=== PATIENT | male | born 1975 | race African-American/Black ===

== ENCOUNTER 2016-12-29 08:26 | Emergency (ER) | payer OTHER ==
[2016-12-29 08:37] VITALS: BP 145/71
--- NOTE | 2016-12-29 09:27 | ER Document Report ---
ED General - General TRAVEL OUTSIDE OF THE [place] IN LAST 30 DAYS: No - General Chief Complaint: Anxiety Stated Complaint: ANXIETY Time Seen by Provider: 12/29/16 09:06 - HPI Notes: Patient, with a history of panic attacks/anxiety, comes to the ED complaining of a panic attack last night and this morning, and now has a headache around his temples bilaterally. No recent head injuries. The headache is described as mild and does not radiate. He is still eating/drinking, urinating, and having normal BM's otherwise. Patient states that his panic attack last night and this morning resolved with taking his Xanax and his breathing techniques that he was taught that counseling. Patient takes Prozac daily along with Xanax as needed. Patient denies any suicidal or homicidal ideations. His past medical history is otherwise unremarkable. No past surgeries. Denies any fever , URI, sore throat, changes in vision, light sensitivity/noise sensitivity, dysphagia, ear pain, neck pain/stiffness, back pain, chest pain, sob, dyspnea, abd pain, n/v/d/c, dysuria, hematuria, muscle weakness/paralysis, dysphasia, changes in mentation/memory/concentration, gait issues, or any seizures. No jaw claudication. (LUISA ESQUIVEL) - Related Data Allergies/Adverse Reactions: No Known Allergies Allergy (Verified 12/29/16 08:29) Past Medical History - Social History Smoking Status: Unknown if Ever Smoked Family History: Reviewed & Not Pertinent Patient has suicidal ideation: No Patient has homicidal ideation: No - Past Medical History Cardiac Medical History: Reports: Hx Hypertension Neurological Medical History: Reports: Hx Seizures Renal/ Medical History: Denies: Hx Peritoneal Dialysis Psychiatric Medical History: Reports: Hx Anxiety, Hx Depression - Immunizations Immunizations up to date: Yes Hx Diphtheria, Pertussis, Tetanus Vaccination: No Review of Systems - Review of Systems Notes: REVIEW OF SYSTEMS: CONSTITUTIONAL : Denies fever, chills, or sweats. Denies recent illness. EENT: Denies eye, ear, throat, or mouth pain or symptoms. Denies nasal or sinus congestion or discharge. Denies throat, tongue, or mouth swelling or difficulty swallowing. CARDIOVASCULAR: Denies chest pain. Denies palpitations or racing or irregular heart beat. Denies ankle edema. RESPIRATORY: Denies cough, cold, or chest congestion. Denies shortness of breath, difficulty breathing, or wheezing. GASTROINTESTINAL: Denies abdominal pain or distention. Denies nausea, vomiting , or diarrhea. Denies blood in vomitus, stools, or per rectum. Denies black, tarry stools. Denies constipation. GENITOURINARY: Denies difficulty urinating, painful urination, burning, frequency, blood in urine, or discharge. MUSCULOSKELETAL: Denies back or neck pain or stiffness. Denies joint pain or swelling. SKIN: Denies rash, lesions or sores. NEUROLOGICAL: Denies confusion or altered mental status. Denies passing out or loss of consciousness. Denies dizziness or lightheadedness. Denies weakness or paralysis or loss of use of either side. Denies problems with gait or speech. Denies sensory loss, numbness, or tingling. Denies seizures. PSYCHIATRIC: Denies anxiety or stress. Denies depression, suicidal ideation, or homicidal ideation. see hpi. ALL OTHER SYSTEMS REVIEWED AND NEGATIVE. Dictation was performed using [employer] voice recognition software (LUISA ESQUIVEL) Physical Exam - Vital signs Vitals: Temp Pulse Resp BP Pulse Ox 98.3 F 77 20 145/71 H 98 12/29/16 08:32 12/29/16 08:32 12/29/16 08:32 12/29/16 08:32 12/29/16 08:32 Notes: PHYSICAL EXAMINATION: GENERAL: Well-appearing, well-nourished and in no acute distress. HEAD: Atraumatic, normocephalic. No battlesign. Non-tender. No tenderness near temporal arteries b/l. EYES: Pupils equal round and reactive to light, extraocular movements intact, sclera anicteric, conjunctiva are normal. No raccoon eyes. ENT: EAC clear b/l. TM's intact b/l without erythema, fluid, or perforation. Nares patent and without discharge. oropharynx clear without exudates. No tonsilar hypertrophy or erythema. Moist mucous membranes. No sinus tenderness. No hemotympanum/CSF discharge. NECK: Normal range of motion, supple without lymphadenopathy. No rigidity/ meningismus. LUNGS: Breath sounds clear to auscultation bilaterally and equal. No wheezes rales or rhonchi. HEART: Regular rate and rhythm without murmurs, rubs, gallops. ABDOMEN: Soft, nontender, nondistended abdomen. No guarding, no rebound. No masses appreciated. Normal bowel sounds present. No CVA tenderness bilaterally. Musculoskeletal: FROM to passive/active to extremities b/l. Strength 5+/5. Extremities: No cyanosis, clubbing, or edema b/l. Peripheral pulses 2+. Capillary refill less than 3 seconds. NEUROLOGICAL: MMSE intact without deficit. Cranial nerves grossly intact. Normal speech, normal gait. Normal sensory, motor exams. reflexes 2+ b/l throughout. Pronator drift negative. Rhomberg negative. Heel to hawkins b/l negative. RITU's normal. PSYCH: Normal mood, normal affect. Pt is calm without signs of active panic attack. SKIN: Warm, Dry, normal turgor, no rashes or lesions noted. (LUISA ESQUIVEL) Course - Re-evaluation Re-evalutation: 12/29/16 10:19 Patient is a 41-year-old afebrile well-hydrated male who presents to the ED status post panic attack this morning with a headache, suspect tension. Vitals are stable. PE otherwise unremarkable. MMSE intact, neurologically intact. Toradol 15 mg IM given today. Pt states that he is feeling well and would like to go home with a work note. Low suspicion for any acute glaucoma, temporal arteritis, meningitis, intracranial hemorrhage, or CVA. [facility] Return to the ED with worsening symptoms. Pt in agreement. (LUISA ESQUIVEL) - Vital Signs Vital signs: Temp Pulse Resp BP Pulse Ox 98.3 F 77 20 145/71 H 98 12/29/16 08:32 12/29/16 08:32 12/29/16 08:32 12/29/16 08:32 12/29/16 08:32 Discharge - Discharge Clinical Impression: Anxiety Headache Qualifiers: Headache type: tension-type Headache chronicity pattern: acute headache Intractability: intractable Qualified Code(s): G44.201 - Tension-type headache, unspecified, intractable Condition: Stable Disposition: HOME, SELF-CARE Instructions: Anxiety ([facility]) Additional Instructions: Maintain fluid intake Take meds regularly as directed Continue breathing techniques as instructed by counselors Tylenol/ibuprofen as needed [facility]. Return to the ED with any worsening symptoms of headache and/or development of fever, changes in mentation/vision/speech, chest pain, palpitations, syncope, shortness of breath, trouble breathing, abdominal pain, n/v/d, blood in stool/ urine, urinary retention, muscle weakness/paralysis, or other worsening symptoms that are concerning to you. Forms: Elevated Blood Pressure, Return to Work Referrals: [facility] [Provider Group] - Follow up as needed
[2016-12-29] MEDS ORDERED: KETOROLAC TROMETHAMINE INJ/PF 30 MG/1 ML SDV IM ONE (09:36)
== END 2016-12-29 10:18 | disposition home or self-care (01) ==
LOC: ER 08:26
DX: F41.9 Anxiety disorder, unspecified (principal); G44.201 Tension-type headache, unspecified, intractable; I10 Essential (primary) hypertension
CPT/HCPCS: 99283; 96372; J1885

== ENCOUNTER 2017-04-27 11:11 | Emergency (ER) | payer OTHER ==
[2017-04-27 11:38] VITALS: BP 150/79
--- NOTE | 2017-04-27 11:46 | ER Document Report ---
ED General - General Chief Complaint: Anxiety Stated Complaint: POSSIBLE ANXIETY Time Seen by Provider: 04/27/17 11:44 Mode of Arrival: Ambulatory Information source: Patient Notes: Patient states she was at work and when he came out of the bathroom he had a panic attack. He states he has been having panic attacks for almost 20 years and this was a normal panic attack. He states he feels back to normal except for mild headache. He states he is on Prozac and Xanax for the panic attacks. He denies any thoughts of suicidal ideation. He states he has no trouble hearing voices or seeing visions. Symptoms were intermittent. There are mild to moderate. Nothing makes them better or worse. There is no radiation of symptoms. TRAVEL OUTSIDE OF THE [place] IN LAST 30 DAYS: No - Related Data Allergies/Adverse Reactions: No Known Allergies Allergy (Verified 04/27/17 11:37) Past Medical History - Social History Smoking Status: Unknown if Ever Smoked Frequency of alcohol use: Occasional Drug Abuse: None Family History: Reviewed & Not Pertinent Patient has suicidal ideation: No Patient has homicidal ideation: No - Past Medical History Cardiac Medical History: Reports: Hx Hypertension Neurological Medical History: Reports: Hx Seizures Renal/ Medical History: Denies: Hx Peritoneal Dialysis Psychiatric Medical History: Reports: Hx Anxiety, Hx Depression - Immunizations Immunizations up to date: Yes Hx Diphtheria, Pertussis, Tetanus Vaccination: No Review of Systems - Review of Systems Constitutional: denies: Chills, Fever Cardiovascular: denies: Chest pain, Dyspnea Respiratory: denies: Cough, Short of breath Physical Exam - Vital signs Vitals: Temp Pulse BP Pulse Ox 98.7 F 72 150/79 H 96 04/27/17 11:36 04/27/17 11:36 04/27/17 11:36 04/27/17 11:36 Interpretation: Hypertensive - General General appearance: Appears well, Alert - HEENT Head: Normocephalic, Atraumatic Eyes: Normal Pupils: PERRL - Respiratory Respiratory status: No respiratory distress Chest status: Nontender Breath sounds: Normal Chest palpation: Normal - Cardiovascular Rhythm: Regular Heart sounds: Normal auscultation Murmur: No - Abdominal Inspection: Normal Distension: No distension Bowel sounds: Normal Tenderness: Nontender Organomegaly: No organomegaly - Back Back: Normal, Nontender - Extremities General upper extremity: Normal inspection, Nontender, Normal color, Normal ROM , Normal temperature General lower extremity: Normal inspection, Nontender, Normal color, Normal ROM , Normal temperature, Normal weight bearing. No: Sedrick's sign - Neurological Neuro grossly intact: Yes Cognition: Normal Orientation: AAOx4 [place] Coma Scale Eye Opening: Spontaneous [place] Coma Scale Verbal: Oriented [place] Coma Scale Motor: Obeys Commands [place] Coma Scale Total: 15 Speech: Normal Motor strength normal: LUE, RUE, LLE, RLE Sensory: Normal - Psychological Associated symptoms: Normal affect, Normal mood. No: Aggressive, Agitated, Anxious, Auditory hallucinations, Circumferential speech, Combative, Confused, Flat affect, Flight of ideas, Paranoid, Tangential speech, Tearful, Visual hallucinations - Skin Skin Temperature: Warm Skin Moisture: Dry Skin Color: Normal Course - Vital Signs Vital signs: Temp Pulse Resp BP Pulse Ox 98.7 F 72 150/79 H 96 04/27/17 11:36 04/27/17 11:36 04/27/17 11:36 04/27/17 11:36 Discharge - Discharge Clinical Impression: Acute anxiety Condition: Stable Disposition: HOME, SELF-CARE Instructions: Anxiety ([facility]) Additional Instructions: Your blood pressure is elevated. Please follow-up with your primary care physician within 1 week to have your blood pressure rechecked. Forms: Elevated Blood Pressure
== END 2017-04-27 11:55 | disposition home or self-care (01) ==
LOC: ER 11:11
DX: F41.0 Panic disorder [episodic paroxysmal anxiety] (principal); Z79.899 Other long term (current) drug therapy; R51 Headache; I10 Essential (primary) hypertension
CPT/HCPCS: 99283

== ENCOUNTER 2020-04-10 11:26 | Emergency (ER) | payer OTHER ==
--- NOTE | 2020-04-10 12:20 | ER Document Report ---
ED General - General Chief Complaint: Neck and Upper Back Pain Stated Complaint: PAINFUL LUMP ON UPPER BACK Primary Care Provider: BARBARA STONE PA [NO LOCAL MD] - Follow up as needed Notes: Patient is a 45-year-old -[place] male with a history of anxiety and [place] phobia who presents to the emergency department chief complaint of right anterolateral chest wall pain that began about 2 days ago. He denies any fall, injury or trauma. States the pain is worse with sneezing, deep breathing or any movement. Also states he has had a sore lump to the back of the neck/upper back for the past month. States there is been no drainage with the area is tender. He admits that it has grown slightly over the past month. Denies any history of same. Denies any fever, chills or night sweats. Denies any recent illness or injury. No cough. No fever. No recent travel or known sick contacts. TRAVEL OUTSIDE OF THE [place] IN LAST 30 DAYS: No - Related Data Allergies/Adverse Reactions: No Known Allergies Allergy (Verified 04/10/20 12:13) Past Medical History - Social History Smoking Status: Unknown if Ever Smoked Family History: Reviewed & Not Pertinent - Past Medical History Cardiac Medical History: Reports: Hx Hypertension Neurological Medical History: Reports: Hx Seizures Renal/ Medical History: Denies: Hx Peritoneal Dialysis Psychiatric Medical History: Reports: Hx Anxiety, Hx Depression - Immunizations Immunizations up to date: Yes Hx Diphtheria, Pertussis, Tetanus Vaccination: No Review of Systems - Review of Systems Constitutional: denies: Fever EENT: denies: Ear pain Cardiovascular: denies: Chest pain Respiratory: denies: Cough Gastrointestinal: denies: Abdominal pain Genitourinary: denies: Burning Male Genitourinary: denies: Testicular pain Musculoskeletal: Joint pain Skin: denies: Lesions Hematologic/Lymphatic: denies: Anemia Neurological/Psychological: denies: Weakness Physical Exam - Vital signs Vitals: Temp Pulse Resp BP Pulse Ox 98.7 F 84 18 140/89 H 98 04/10/20 11:31 04/10/20 11:31 04/10/20 11:31 04/10/20 11:31 04/10/20 11:31 - General General appearance: Appears well, Alert In distress: None - HEENT Head: Normocephalic, Atraumatic Eyes: Normal Pupils: PERRL Neck: Supple - Respiratory Respiratory status: No respiratory distress Chest status: Nontender Breath sounds: Normal Chest palpation: Normal - Cardiovascular Rhythm: Regular Heart sounds: Normal auscultation - Neurological Neuro grossly intact: Yes Cognition: Normal Orientation: AAOx4 - Psychological Associated symptoms: Normal affect, Normal mood - Skin Skin Color: Other - Small raised area to the left upper back lateral to about C7. Approximately 2 cm in diameter with minimal fluctuance. No erythema or drainage. No proximal streaking or expanding cellulitis. Course - Re-evaluation Re-evalutation: 04/10/20 14:26 Cyst sac infiltrated, no discharge appreciated. Patient tolerated well. Started on Bactrim. He will follow-up with dermatology as discussed. Discussed wound care measures, warm compress. Discussed with him the importance of outpatient follow-up in the next 2 to 3 days and advised that they return here or any ER immediately with any new, persistent or worsening symptoms. They verbalized understood and agreed. - Vital Signs Vital signs: Temp Pulse Resp BP Pulse Ox 98.7 F 84 18 140/89 H 98 04/10/20 12:13 04/10/20 11:31 04/10/20 11:31 04/10/20 11:31 04/10/20 11:31 Procedures - Incision and Drainage Left Upper Back Time completed: 14:26 Type: Simple Anesthetic type: 1% Lidocaine w/epi mL's of anesthetic: 4 Blade size: 11 I&D procedure: Chlorprep applied Incision Method: Incision made by scalpel Amount/type of drainage: None Notes: 04/10/20 14:26 Cyst sac incised without drainage. Superficial attempt was made given the location over the posterior chest wall. Unsuccessful with any drainage. Patient tolerated well. Status post no subcu emphysema, crepitance or difficulty breathing. Discharge - Discharge Clinical Impression: Cutaneous cyst, Chest wall pain Condition: Stable Disposition: HOME, SELF-CARE Instructions: Chest Wall Pain ([facility]), Post Incision and Drainage Additional Instructions: Please follow-up with a trackwalker and/or your primary care doctor in the next 2 to 3 days for reevaluation. Please return here or any ER immediately with any new, persistent or worsening symptoms. Prescriptions: Tramadol HCl [Ultram 50 mg Tablet] 50 mg PO Q6HP PRN #12 tablet PRN Reason: Pain Scale Of 4 Sulfamethoxazole/Trimethoprim [Bactrim Ds Tablet] 1 each PO BID #14 tablet Referrals: BARBARA STONE PA [NO LOCAL MD] - Follow up as needed
--- NOTE | 2020-04-10 13:19 | RADIOLOGY REPORT (SQ) ---
EXAM DESCRIPTION: RIBS RIGHT W/PA CHEST IMAGES COMPLETED DATE/TIME: 04/10/2020 12:32 pm REASON FOR STUDY: pain COMPARISON: None. TECHNIQUE: Frontal view of the chest and additional views of the right ribs acquired. NUMBER OF VIEWS: Five views LIMITATIONS: None. FINDINGS: FRONTAL CXR: No pneumothorax. No pleural effusion. No atelectasis or infiltrates. RIBS: No displaced rib fractures. No lytic or blastic bony lesions. OTHER: No other significant finding. IMPRESSION: NO PNEUMOTHORAX. NO DISPLACED RIB FRACTURES. COMMENT: SITE OF TRAUMA/COMPLAINT MARKED/STAMP COMPLETED: YES. TECHNICAL DOCUMENTATION: JOB ID: [id number] [employer]- All Rights Reserved Reading location - IP/workstation name: [email or web address]
[2020-04-10] MEDS ORDERED: LIDOCAINE 2%/EPINEPHRINE INJ 20 ML VIAL INJ ONE (13:26)
[2020-04-10] MEDS ORDERED: KETOROLAC TROMETHAMINE 60 MG/2 ML SDV IM ONE (13:26)
[2020-04-10] MEDS ORDERED: SULFAMETHOXAZOLE/TRIMETHOPRIM 800-160 MG TABLET PO ONE (13:26)
[2020-04-10 14:43] VITALS: BP 140/84
== END 2020-04-10 14:42 | disposition home or self-care (01) ==
LOC: ER 11:26
DX: L72.8 Other follicular cysts of the skin and subcutaneous tissue (principal); M54.2 Cervicalgia; M54.6 Pain in thoracic spine; F41.9 Anxiety disorder, unspecified
CPT/HCPCS: 99283; 96372; 71101; 10060; J1885; J3490